=== PATIENT | female | born 1930 | race Caucasian/White ===

== ENCOUNTER → 2021-09-08 | Outpatient (CLI) | payer MEDICARE ==
[2021-09-09 03:21] LABS: INR 2.06 (0.90-1.11); Prothrombin Time 22.5 sec (9.9-11.9)
== END | disposition home or self-care (01) ==
LOC: LABWHC1 15:48
PROVIDERS: ATTEND Nurse Practitioner Family
DX: L98.492 Non-pressure chronic ulcer of skin of other sites with fat layer exposed (principal)
CPT/HCPCS: 36415; 85610

== ENCOUNTER 2021-12-16 10:31 | Emergency (ER) | payer MEDICARE ==
[2021-12-16 10:45] VITALS: RESP 18; TEMP 97.9
[2021-12-16] MEDS ORDERED: SODIUM CHLORIDE 0.9% 1,000 ML IV STA ×2 (10:59→11:22)
--- NOTE | 2021-12-16 11:02 | ED ---
General Adult HPI - General Chief complaint: Weakness Stated complaint: Weakness Time Seen by Provider: 12/16/21 10:43 Source: patient, family, EMS, RN notes reviewed, old records reviewed (Previous EKG reviewed from 08/04/15) Mode of arrival: EMS Limitations: no limitations - History of Present Illness Initial comments: Patient is a pleasant 89-year-old female presenting to the emergency department general weakness. Majority of history comes from daughter. Patient has been hemodynamically using a walker with difficulty recently however unable to get out of bed today. Patient has not been eating or drinking well. Patient is on radiation therapy secondary to history of skin cancer on the scalp. Last radiation was 5 days ago. Patient has minimal confusion that has progressively worse over the past several months. No isolated area of weakness. Patient has history also of chronic lower back pain that has been somewhat worse recently. - Related Data Home Medications Medication Instructions Recorded Confirmed Furosemide [Lasix] 20 mg PO DAILY 12/16/21 12/16/21 Levothyroxine Sodium [Synthroid] 75 mcg PO DAILY 12/16/21 12/16/21 Losartan Potassium [Cozaar] 25 mg PO DAILY 12/16/21 12/16/21 Potassium Chloride ER [K-Dur 10] 10 meq PO DAILY 12/16/21 12/16/21 Simvastatin [Zocor] 10 mg PO HS 12/16/21 12/16/21 Warfarin [Coumadin] 5 mg PO HS 12/16/21 12/16/21 atenoloL [Tenormin] 25 mg PO DAILY 12/16/21 12/16/21 Allergies Allergy/AdvReac Type Severity Reaction Status Date / Time No Known Allergies Allergy Verified 12/16/21 12:06 Review of Systems ROS Statement: Those systems with pertinent positive or pertinent negative responses have been documented in the HPI. ROS Other: All systems not noted in ROS Statement are negative. Constitutional: Denies: fever Eyes: Denies: eye pain ENT: Denies: ear pain Respiratory: Denies: cough, dyspnea Cardiovascular: Denies: chest pain Endocrine: Reports: fatigue Gastrointestinal: Denies: abdominal pain, vomiting Genitourinary: Denies: dysuria Musculoskeletal: Reports: as per HPI, back pain Skin: Reports: as per HPI Neurological: Reports: as per HPI. Denies: headache Past Medical History Past Medical History: Unable to Obtain, Hypertension Additional Past Medical History / Comment(s): Skin CA with radiation 2021 History of Any Multi-Drug Resistant Organisms: None Reported Past Surgical History: Unable to Obtain, Hysterectomy, Orthopedic Surgery Past Psychological History: No Psychological Hx Reported Smoking Status: Never smoker Past Alcohol Use History: Rare Past Drug Use History: None Reported General Exam Limitations: no limitations General appearance: alert, in no apparent distress Head exam: Present: other (Scalp lesion) Eye exam: Present: normal appearance, PERRL, EOMI ENT exam: Present: normal oropharynx Neck exam: Present: normal inspection. Absent: tenderness, meningismus Respiratory exam: Present: normal lung sounds bilaterally Cardiovascular Exam: Present: regular rate, normal rhythm GI/Abdominal exam: Present: soft. Absent: tenderness Extremities exam: Present: normal inspection Neurological exam: Present: alert, CN II-XII intact. Absent: motor sensory deficit Expanded Neurological exam: Present: protecting the airway Patient oriented to: Absent: time (Family states chronic) Motor strength exam: RUE: 5, LUE: 5, RLE: 5, LLE: 5 Eye Response: (4) open spontaneously Motor Response: (6) obeys commands Verbal Response: (4) confused conversation Psychiatric exam: Present: flat affect Skin exam: Present: normal color Course Vital Signs 12/16/21 10:33 Temperature 97.9 F Pulse Rate 97 Respiratory 18 Rate Blood Pressure 96/56 O2 Sat by Pulse 97 Oximetry EKG Findings - EKG Comments: EKG Findings:: Atrial flutter with a rate of 78. QRS 81. QT 347. QTc 381. Left axis. LVH. Lateral T wave inversion. Septal Q waves. Medical Decision Making - Medical Decision Making Case discussed with Dr. Gutierrez will admit covering for Dr. De. He will evaluate patient in the emergency department - Lab Data Result diagrams: 12/16/21 11:38 12/16/21 11:38 Lab Results 12/16/21 12/16/21 12/16/21 Range/Units 11:38 11:38 11:38 WBC 12.9 H (3.8-10.6) k/uL RBC 4.04 (3.80-5.40) m/uL Hgb 13.1 (11.4-16.0) gm/dL Hct 38.9 (34.0-46.0) % MCV 96.2 (80.0-100.0) fL MCH 32.3 (25.0-35.0) pg MCHC 33.6 (31.0-37.0) g/dL RDW 13.0 (11.5-15.5) % Plt Count 259 (150-450) k/uL MPV 8.7 Neutrophils % 80 % Lymphocytes % 10 % Monocytes % 5 % Eosinophils % 3 % Basophils % 0 % Neutrophils # 10.2 H (1.3-7.7) k/uL Lymphocytes # 1.3 (1.0-4.8) k/uL Monocytes # 0.6 (0-1.0) k/uL Eosinophils # 0.4 (0-0.7) k/uL Basophils # 0.1 (0-0.2) k/uL PT 16.7 H (9.0-12.0) sec INR 1.6 H (<1.2) APTT 22.7 (22.0-30.0) sec Sodium 133 L (137-145) mmol/L Potassium 4.0 (3.5-5.1) mmol/L Chloride 100 (98-107) mmol/L Carbon Dioxide 25 (22-30) mmol/L Anion Gap 8 mmol/L BUN 39 H (7-17) mg/dL Creatinine 1.35 H (0.52-1.04) mg/dL Est GFR (CKD-EPI)AfAm 40 (>60 ml/min/1.73 sqM) Est GFR (CKD-EPI)NonAf 35 (>60 ml/min/1.73 sqM) Glucose 134 H (74-99) mg/dL Plasma Lactic Acid Luis Manuel (0.7-2.0) mmol/L Calcium 11.3 H (8.4-10.2) mg/dL Magnesium 1.8 (1.6-2.3) mg/dL Total Bilirubin 1.0 (0.2-1.3) mg/dL AST 45 H (14-36) U/L ALT 21 (4-34) U/L Alkaline Phosphatase 153 H (38-126) U/L NT-Pro-B Natriuret Pep pg/mL Total Protein 7.0 (6.3-8.2) g/dL Albumin 4.0 (3.5-5.0) g/dL TSH 2.830 (0.465-4.680) mIU/L Free T4 1.62 (0.78-2.19) ng/dL Free T3 pg/mL 2.2 L (2.8-5.3) pg/ml 12/16/21 12/16/21 Range/Units 11:38 11:38 WBC (3.8-10.6) k/uL RBC (3.80-5.40) m/uL Hgb (11.4-16.0) gm/dL Hct (34.0-46.0) % MCV (80.0-100.0) fL MCH (25.0-35.0) pg MCHC (31.0-37.0) g/dL RDW (11.5-15.5) % Plt Count (150-450) k/uL MPV Neutrophils % % Lymphocytes % % Monocytes % % Eosinophils % % Basophils % % Neutrophils # (1.3-7.7) k/uL Lymphocytes # (1.0-4.8) k/uL Monocytes # (0-1.0) k/uL Eosinophils # (0-0.7) k/uL Basophils # (0-0.2) k/uL PT (9.0-12.0) sec INR (<1.2) APTT (22.0-30.0) sec Sodium (137-145) mmol/L Potassium (3.5-5.1) mmol/L Chloride (98-107) mmol/L Carbon Dioxide (22-30) mmol/L Anion Gap mmol/L BUN (7-17) mg/dL Creatinine (0.52-1.04) mg/dL Est GFR (CKD-EPI)AfAm (>60 ml/min/1.73 sqM) Est GFR (CKD-EPI)NonAf (>60 ml/min/1.73 sqM) Glucose (74-99) mg/dL Plasma Lactic Acid Luis Manuel 1.7 (0.7-2.0) mmol/L Calcium (8.4-10.2) mg/dL Magnesium (1.6-2.3) mg/dL Total Bilirubin (0.2-1.3) mg/dL AST (14-36) U/L ALT (4-34) U/L Alkaline Phosphatase (38-126) U/L NT-Pro-B Natriuret Pep 2700 pg/mL Total Protein (6.3-8.2) g/dL Albumin (3.5-5.0) g/dL TSH (0.465-4.680) mIU/L Free T4 (0.78-2.19) ng/dL Free T3 pg/mL (2.8-5.3) pg/ml - Radiology Data Radiology results: report reviewed (Computed tomography scan of the brain shows large bilateral subdural hygromas. No acute intercranial changes.), image reviewed (Lumbar x-ray shows multilevel degenerative disc changes and scoliosis. Two-view chest x-ray shows no acute process.) Disposition Clinical Impression: Hygroma, General weakness Disposition: ADMITTED IP TO THIS HOSP Is patient prescribed a controlled substance at d/c from ED?: No Referrals: None,Stated [REFERRING] - 1-2 days Time of Disposition: 13:41
[2021-12-16 11:52] LABS: Basophils # (A) 0.1 k/uL (0-0.2); Basophils % (A) 0 %; Eosinophils # (A) 0.4 k/uL (0-0.7); Eosinophils % (A) 3 %; HCT 38.9 % (34.0-46.0); HGB 13.1 gm/dL (11.4-16.0); Lymphocytes # (A) 1.3 k/uL (1.0-4.8); Lymphocytes % (A) 10 %; MCH 32.3 pg (25.0-35.0); MCHC 33.6 g/dL (31.0-37.0); MCV 96.2 fL (80.0-100.0); Mean Platelet Volume 8.7; Monocytes # (A) 0.6 k/uL (0-1.0); Monocytes % (A) 5 %; Neutrophils # (A) 10.2 k/uL (1.3-7.7); Neutrophils % (A) 80 %; Platelet Count 259 k/uL (150-450); RBC 4.04 m/uL (3.80-5.40); WBC 12.9 k/uL (3.8-10.6)
[2021-12-16 12:04] LABS: Calcium 11.3 mg/dL (8.4-10.2); Magnesium 1.8 mg/dL (1.6-2.3)
[2021-12-16 12:07] LABS: INR 1.6 (<1.2); Partial Thromboplastin Time 22.7 sec (22.0-30.0); Prothrombin Time 16.7 sec (9.0-12.0)
[2021-12-16 12:22] LABS: T4, Free (Free Thyroxine) 1.62 ng/dL (0.78-2.19)
--- NOTE | 2021-12-16 12:46 | CT ---
EXAMINATION TYPE: CT brain wo con DATE OF EXAM: 12/16/2021 COMPARISON: None INDICATION: Weakness DLP: 1111.4 mGycm, Automated exposure control for dose reduction was used. CONTRAST: None CT of the brain is performed utilizing 3 mm thick sections through the posterior fossa and 3 mm thick sections through the remaining calvarium. Study is performed within 24 hours of arrival to the hosp ital. No abnormal hyperdensity is present to suggest an acute intracranial hemorrhage. No mass lesion is evident. No acute infarcts are evident. There is prominence of the extra-axial spaces compatible subdural hygromas. Significant mass effect o n the brain is not evident. Old subdural hemorrhages are not clearly identified. Ventricles and sulci are appropriate for the patient age. Air-fluid levels within the right maxillary sinus. Correlate for right maxillary sinusitis. Remaining paranasal sinuses and mastoid air cells are clear. IMPRESSIONS: 1. 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 2. No suspicious acute intracranial changes. Follow-up MRI can be performed as clinically indicated.
--- NOTE | 2021-12-16 13:01 | XR ---
EXAMINATION TYPE: XR lumbar spine 2 or 3V DATE OF EXAM: 12/16/2021 COMPARISON: None HISTORY: Pain TECHNIQUE: 3 view lumbar spine FINDINGS: There is a scoliosis present. There are 5 lumbar-type vertebral bodies. There is diffuse lo ss of disc height throughout the lumbar spine. Spondylosis is present. No spondylolisthesis is eviden t. IMPRESSION: 1. Multilevel degenerative disc changes and scoliosis.
--- NOTE | 2021-12-16 13:03 | XR ---
EXAMINATION TYPE: XR chest 2V DATE OF EXAM: 12/16/2021 COMPARISON: None INDICATION: Weakness TECHNIQUE: Frontal and lateral views of the chest are obtained. FINDINGS: The heart size is upper limits of normal. The pulmonary vasculature is normal. The lungs are clear. There may be some elevation of the right diaphragm. IMPRESSION: 1. No acute pulmonary process.
[2021-12-16] MEDS ORDERED: NALOXONE 0.4 MG/ML 1 ML VIAL IV PRN (14:13)
[2021-12-16 14:46] LABS: Appearance,Urine Clear (Clear); Bilirubin,Urine Negative (Negative); Blood,Urine Negative (Negative); Color,Urine Yellow; Glucose,Urine (UA) Negative (Negative); Ketones,Urine Negative (Negative); Leukocyte Esterase,Urine Negative (Negative); Nitrite,Urine Negative (Negative); PH, Urine 5.5 (5.0-8.0); Protein,Urine Trace (Negative); Specific Gravity,Urine 1.019 (1.001-1.035); Urobilinogen,Urine <2.0 mg/dL (<2.0)
--- NOTE | 2021-12-16 17:15 | P.CNNES ---
History of Present Illness Consult date: 12/16/21 Requesting physician: Cade Marinelli Reason for Consult: General weakness History of Present Illness: Patient is a 89-year-old female came to the hospital for progressive generalized weakness, terrible back pain, no balance. The symptoms have been going on for last few weeks, progressively getting worse. This morning it was so worse that her daughter could not get her up from chair. Family has not noticed any stroke symptoms like facial droop, slurred speech, focal weakness. Patient has not been eating. Patient denies any abdominal pain, nausea vomiting. She does have some diarrhea. No chest pain, no history of brain bleed. Patient says that she gets headache "once in a while", for which she takes Tylenol or Motrin. She does have chronic back pain also. Denies any fever or chills. Patient's vitals on arrival blood pressure 96/56, which went up to 130/80. Pulse rate 97, temperature 97.9. Blood test shows WBC 12.9 hemoglobin 13.1, normal platelets. INR is subtherapeutic 1.6. PTT is 22.7. Sodium 133 potassium 4.0, BUN 39, creatinine 1.35. AST 45, ALT 21. TSH is normal 2.83. Free T4 normal. UA negative. EKG shows atrial flutter/tachycardia. Telemetry Monitoring Showing Atrial Fibrillation. CT Head Reported Suspected Large Bilateral Subdural Hygromas. No Suspicious Acute Intracranial Changes. I Personally Reviewed CT Head, Agree with the Findings. There Is Very Significant Bilateral Subdural hygromas, with mass effect, and appears to be pushing the brain down. No acute hemorrhage. No recent history of head injury, although patient did hit head on the refrigerator about a year ago, after which she bled quite a bit, but did not undergo any testing at that time. No falls or recent head trauma. Patient's family never been told about patient having excessive "water over the brain". Patient at present is undergoing radiation treatment for some skin cancer on her scalp. She has not had any CAT scan done for long time. Patient lives by herself, but visiting nurses come frequently. Patient has atrial fibrillation, currently on Coumadin. Patient states that she is compliant with medications. Does not miss a dose. Patient's sons who were present, tells me that she does forget taking medications off and on. Patient has hypertension, denies diabetes. She has never smoked, occasional alcohol. Patient's hearing is significantly decreased. Review of Systems Short-term memory affected for last couple of months, progressively getting w orse. All 14 points of review of system reviewed, unremarkable except as mentioned above. Past Medical History Past Medical History: Unable to Obtain, Hypertension Additional Past Medical History / Comment(s): Skin CA with radiation 2021 History of Any Multi-Drug Resistant Organisms: None Reported Past Surgical History: Unable to Obtain, Hysterectomy, Orthopedic Surgery Past Psychological History: No Psychological Hx Reported Smoking Status: Never smoker Past Alcohol Use History: Rare Past Drug Use History: None Reported Medications and Allergies Home Medications Medication Instructions Recorded Confirmed Type Furosemide [Lasix] 20 mg PO DAILY 12/16/21 12/16/21 History Levothyroxine Sodium [Synthroid] 75 mcg PO DAILY 12/16/21 12/16/21 History Losartan Potassium [Cozaar] 25 mg PO DAILY 12/16/21 12/16/21 History Potassium Chloride ER [K-Dur 10] 10 meq PO DAILY 12/16/21 12/16/21 History Simvastatin [Zocor] 10 mg PO HS 12/16/21 12/16/21 History Warfarin [Coumadin] 5 mg PO HS 12/16/21 12/16/21 History atenoloL [Tenormin] 25 mg PO DAILY 12/16/21 12/16/21 History Allergies Allergy/AdvReac Type Severity Reaction Status Date / Time No Known Allergies Allergy Verified 12/16/21 12:06 Physical Examination - Vital Signs Vital Signs: Vital Signs Temp Pulse Resp BP Pulse Ox 12/16/21 10:33 97.9 F 97 18 96/56 97 Intake and Output 12/16/21 12/16/21 12/16/21 06:59 14:59 22:59 Output Total 750 Balance -750 Output: Urine 750 Uretheral (Hercules) 750 Other: Weight 77.111 kg Patient is an elderly female, in no acute distress. Patient is alert awake, appears somewhat spacey, with slightly slow mentation. Patient states the month is December,, could not tell the year. Patient states that she lives in [facility], in [facility]. She knows name of the current president. She could not tell name of the hospital. Speech and language functions are normal. Patient can name and repeat very well. Attention, concentration and fund of knowledge is slightly impaired. On cranial examination, pupils are equal, round and reacting to light, visual nagy are full on confrontation, extraocular muscles are intact with no nystagmus. Face is symmetric, tongue protrudes to the midline. Palatal eleva tion and sensation normal, hearing is moderately decreased and shoulder shrug normal, facial sensation normal. Shoulder shrug normal. On muscle strength testing, there is no pronator drift and the strength is normal in arms and legs distally and proximally, except left deltoid which is 5- . Deep tendon reflexes are symmetric, 1 at the biceps, 1 brachioradialis, 1+ at the right knee, 0 on the left, trace ankles bilaterally and plantars downgoing. Patient had history of left knee surgery it appears. Sensory to touch is equal in the lower extremities, but sensation was better in the right upper extremity as compared to the left upper extremity. Cerebellar function showed no ataxia for [id number] testing. No dysdiadochokinesia. Tone and bulk of muscles normal. Gait not checked. On general examination, there is no carotid bruit or murmur, S1-S2 audible. Abdomen is soft nontender. Chest is clear. Peripheral pulses are present. Very mild peripheral edema. Results - Laboratory Findings CBC and BMP: 12/16/21 11:38 12/16/21 11:38 Abnormal Lab Findings: Abnormal Labs 12/16/21 12/16/21 12/16/21 11:38 11:38 11:38 WBC 12.9 H Neutrophils # 10.2 H PT 16.7 H INR 1.6 H Sodium BUN Creatinine Glucose Calcium AST Alkaline Phosphatase Free T3 pg/mL Urine Protein Trace H 12/16/21 11:38 WBC Neutrophils # PT INR Sodium 133 L BUN 39 H Creatinine 1.35 H Glucose 134 H Calcium 11.3 H AST 45 H Alkaline Phosphatase 153 H Free T3 pg/mL 2.2 L Urine Protein Assessment and Plan Assessment: * Progressive weakness with difficulty with ambulation going on for last few weeks. Today patient was not able to get up from chair. CT head revealed bilateral large subdural hygroma, with mass effect, but no midline shift. Suspect generalized weakness likely related to large bilateral subdural hygromas. * Hypertension * Memory disturbance for last couple months. Perhaps due to above. Plan: * Recommend transfer to higher level of care for neurosurgical consultation. * Patient's symptoms likely from large subdural hygromas. She may need craniotomy. * Discussed with the ED staff Dr. Gagnon and . * Also discussed in detail with patient's 2 sons and 1 daughter. * Thank you for the consult.
[2021-12-16] MEDS ORDERED: HYDROmorphone 0.5 MG/0.5 ML SYRINGE IVP STA (17:17)
--- NOTE | 2021-12-16 17:21 | ED ---
Medical Decision Making - Medical Decision Making Patient initially was to be admitted to this facility for evaluation of weakness however his CT did show evidence of a rather large bilateral subdural hygroma. Patient was evaluated by Dr. Alcantar in the emergency department and did recommend transfer to a neurosurgical facility. I did discuss this with the patient and family who is in agreement patient will be transferred to [facility] I did discuss the case with Dr. Solis who is agreed to set the patient transfer. Weakness purely is been going on for about 4 days he normally can walk using a walker navigate stairs she's not been able to do that a scant progressive worse over last 4 days dizzy apparently her memory is also been declining rather rapidly also. Please see the complete report and consult. - Lab Data Result diagrams: 12/16/21 11:38 12/16/21 11:38 Lab Results 12/16/21 12/16/21 12/16/21 Range/Units 11:38 11:38 11:38 WBC 12.9 H (3.8-10.6) k/uL RBC 4.04 (3.80-5.40) m/uL Hgb 13.1 (11.4-16.0) gm/dL Hct 38.9 (34.0-46.0) % MCV 96.2 (80.0-100.0) fL MCH 32.3 (25.0-35.0) pg MCHC 33.6 (31.0-37.0) g/dL RDW 13.0 (11.5-15.5) % Plt Count 259 (150-450) k/uL MPV 8.7 Neutrophils % 80 % Lymphocytes % 10 % Monocytes % 5 % Eosinophils % 3 % Basophils % 0 % Neutrophils # 10.2 H (1.3-7.7) k/uL Lymphocytes # 1.3 (1.0-4.8) k/uL Monocytes # 0.6 (0-1.0) k/uL Eosinophils # 0.4 (0-0.7) k/uL Basophils # 0.1 (0-0.2) k/uL PT 16.7 H (9.0-12.0) sec INR 1.6 H (<1.2) APTT 22.7 (22.0-30.0) sec Sodium (137-145) mmol/L Potassium (3.5-5.1) mmol/L Chloride (98-107) mmol/L Carbon Dioxide (22-30) mmol/L Anion Gap mmol/L BUN (7-17) mg/dL Creatinine (0.52-1.04) mg/dL Est GFR (CKD-EPI)AfAm (>60 ml/min/1.73 sqM) Est GFR (CKD-EPI)NonAf (>60 ml/min/1.73 sqM) Glucose (74-99) mg/dL Plasma Lactic Acid Luis Manuel (0.7-2.0) mmol/L Calcium (8.4-10.2) mg/dL Magnesium (1.6-2.3) mg/dL Total Bilirubin (0.2-1.3) mg/dL AST (14-36) U/L ALT (4-34) U/L Alkaline Phosphatase (38-126) U/L NT-Pro-B Natriuret Pep pg/mL Total Protein (6.3-8.2) g/dL Albumin (3.5-5.0) g/dL TSH (0.465-4.680) mIU/L Free T4 (0.78-2.19) ng/dL Free T3 pg/mL (2.8-5.3) pg/ml Urine Color Yellow Urine Appearance Clear (Clear) Urine pH 5.5 (5.0-8.0) Ur Specific [place] 1.019 (1.001-1.035) Urine Protein Trace H (Negative) Urine Glucose (UA) Negative (Negative) Urine Ketones Negative (Negative) Urine Blood Negative (Negative) Urine Nitrite Negative (Negative) Urine Bilirubin Negative (Negative) Urine Urobilinogen <2.0 (<2.0) mg/dL Ur Leukocyte Esterase Negative (Negative) 12/16/21 12/16/21 12/16/21 Range/Units 11:38 11:38 11:38 WBC (3.8-10.6) k/uL RBC (3.80-5.40) m/uL Hgb (11.4-16.0) gm/dL Hct (34.0-46.0) % MCV (80.0-100.0) fL MCH (25.0-35.0) pg MCHC (31.0-37.0) g/dL RDW (11.5-15.5) % Plt Count (150-450) k/uL MPV Neutrophils % % Lymphocytes % % Monocytes % % Eosinophils % % Basophils % % Neutrophils # (1.3-7.7) k/uL Lymphocytes # (1.0-4.8) k/uL Monocytes # (0-1.0) k/uL Eosinophils # (0-0.7) k/uL Basophils # (0-0.2) k/uL PT (9.0-12.0) sec INR (<1.2) APTT (22.0-30.0) sec Sodium 133 L (137-145) mmol/L Potassium 4.0 (3.5-5.1) mmol/L Chloride 100 (98-107) mmol/L Carbon Dioxide 25 (22-30) mmol/L Anion Gap 8 mmol/L BUN 39 H (7-17) mg/dL Creatinine 1.35 H (0.52-1.04) mg/dL Est GFR (CKD-EPI)AfAm 40 (>60 ml/min/1.73 sqM) Est GFR (CKD-EPI)NonAf 35 (>60 ml/min/1.73 sqM) Glucose 134 H (74-99) mg/dL Plasma Lactic Acid Luis Manuel 1.7 (0.7-2.0) mmol/L Calcium 11.3 H (8.4-10.2) mg/dL Magnesium 1.8 (1.6-2.3) mg/dL Total Bilirubin 1.0 (0.2-1.3) mg/dL AST 45 H (14-36) U/L ALT 21 (4-34) U/L Alkaline Phosphatase 153 H (38-126) U/L NT-Pro-B Natriuret Pep 2700 pg/mL Total Protein 7.0 (6.3-8.2) g/dL Albumin 4.0 (3.5-5.0) g/dL TSH 2.830 (0.465-4.680) mIU/L Free T4 1.62 (0.78-2.19) ng/dL Free T3 pg/mL 2.2 L (2.8-5.3) pg/ml Urine Color Urine Appearance (Clear) Urine pH (5.0-8.0) Ur Specific [place] (1.001-1.035) Urine Protein (Negative) Urine Glucose (UA) (Negative) Urine Ketones (Negative) Urine Blood (Negative) Urine Nitrite (Negative) Urine Bilirubin (Negative) Urine Urobilinogen (<2.0) mg/dL Ur Leukocyte Esterase (Negative) Disposition Clinical Impression: Hygroma, General weakness Disposition: OTHER INSTITUTION NOT DEFINED Condition: Stable Referrals: None,Stated [REFERRING] - 1-2 days Decision Date: 12/16/21 Decision Time: 17:20 - Out of Hospital Transfer - Req. Specs Out of Hospital Transfer - Requested Specifics: Other Emergency Center
[2021-12-16 17:45] VITALS: BP 136/74; PULSE 79
--- NOTE | 2021-12-16 23:18 | P.EN ---
I saw the patient earlier today. Patient admission was then canceled because of evaluation by neurology. Patient is to be transferred out to [facility].
== END 2021-12-16 18:19 | disposition other institution (70) ==
LOC: SUPCPDRO 10:31 → EC 10:31 → 5NMEDONC 14:13 → UNDOADMIN 14:13 → EC 18:19
DX: D18.1 Lymphangioma, any site (principal); R53.1 Weakness; R41.3 Other amnesia; I10 Essential (primary) hypertension; Z79.899 Other long term (current) drug therapy
CPT/HCPCS: 36415; 93005; 84439; 84481; 83880; 80053; 83605; 83735; 84443; 85025; 85610; 85730; 81003; 72100; 71046; 70450; 99285; 96374; 96361; J1170